=== PATIENT | female | born 1965 | race Caucasian/White ===

== ENCOUNTER 2016-10-13 12:22 | Day surgery (SDC) | payer OTHER ==
[2016-10-13] MEDS ORDERED: Lidocaine 1% INJ* 10 MG/ML 30 ML SDV ONE (13:18)
[2016-10-13] MEDS ORDERED: Lidocain 1% EPI 1:100,000 * 30 ML MDV ONE (13:32)
[2016-10-13] MEDS ORDERED: Sodium Bicarbonate 8.4% SYR* 10 ML SYRINGE ONE (13:32)
[2016-10-13 14:34] VITALS: BP 125/59
--- NOTE | 2016-10-14 11:31 | OP ---
OPERATIVE REPORT: DATE OF OPERATION: 10/13/16 DATE OF : 63 SURGEON: Miguel Ángel Espino MD OUTDOOR STUDIES PROFESSOR: MARCOS Doherty ANESTHESIOLOGIST: None. ANESTHESIA: Local only with 1% lidocaine with epinephrine. PRE-OP DIAGNOSIS: Left trigger thumb. POST-OP DIAGNOSIS: Left trigger thumb. OPERATIVE PROCEDURE: Left thumb A1 dayana release. INDICATIONS: Starr has had a thumb stuck and locked in extension for about a month and a half. I s aw her in the office. We talked about treatment options. She elected to proceed with surgery. We discussed risks and benefits of that procedure at that time. ESTIMATED BLOOD LOSS: 5 mL. COMPLICATIONS: None. FINDINGS: As expected, there was some fraying of the FPL tendon volarly. DESCRIPTION OF PROCEDURE: Starr was seen in the preoperative holding area, and the correct procedur e, side and site were identified. Time-out was performed and then the operative area was infiltrate d with 1% lidocaine with epinephrine and bicarbonate. We then waited about 20 minutes and came back to the operating room. The arm was prepped and draped in the usual fashion and a formal time-out wa s performed. I made a transverse incision in the volar flexion crease over the metacarpophalangeal joint. The te notomy scissors were used to bluntly develop full- thickness flaps off the flexor tendon sheath. Th e digital nerves were identified and protected. I then longitudinally incised the A1 dayana with th e #15 blade. The release was completed proximally and distally under direct visualization with the t enotomy scissors. Once the release was fully complete, I went ahead and had her flex and extend the thumb IP joint multiple times try to induce any clicking or catching. We could not induce anymore. At this point, I went ahead and irrigated the wound and the skin was closed with some 5-0 nylon hoyos ture. The wounds were appropriately dressed and then she was taken to the recovery unit in stable c ondition. [id number]/[facility] #: [id number]
== END 2016-10-13 14:36 | disposition home or self-care (01) ==
LOC: OREAST 12:22
PROVIDERS: ATTEND Orthopaedic Surgery Hand Surgery
DX: M65.312 Trigger thumb, left thumb (principal); E11.8 Type 2 diabetes mellitus with unspecified complications; Z79.84 Long term (current) use of oral hypoglycemic drugs; I10 Essential (primary) hypertension; F17.210 Nicotine dependence, cigarettes, uncomplicated